=== PATIENT | female | born 1965 | race Caucasian/White ===

== ENCOUNTER → 2019-03-28 | Outpatient (CLI) | payer BC ==
--- NOTE | 2019-03-28 10:18 | REP ---
BILATERAL LOWER EXTREMITY DUPLEX DOPPLER VENOUS ULTRASOUND WITH EVALUATION FOR VENOUS REFLUX: Real-time compression and duplex Doppler interrogation of the bilateral lower extremity deep venous systems is performed. Bilaterally, common femoral, superficial femoral and popliteal veins are fully compressible with transducer pressure and demonstrate normal spontaneous and phasic flow without evidence of deep venous thrombosis. Echogenic material is seen in the left lesser saphenous vein with partial calcification, compatible with chronic thrombosis. Evaluation for venous reflux on the right demonstrates mild reflux in the common femoral vein. There is an anterior accessory greater saphenous vein present without reflux. There is no reflux in the remaining deep vein system. There is no reflux in any portion of the greater saphenous vein, which measures 5 mm at the saphenofemoral junction and 3 mm distal to that. There is reflux in the lesser saphenous vein with a duration of 3.0 seconds, AP diameter of 9 mm. There is very slow flow in the right greater saphenous vein. On the left, there is mild reflux in the common femoral vein. There is an anterior accessory greater saphenous vein present without reflux. There is no reflux in the more peripheral deep vein system. There is reflux in the greater saphenous vein at the saphenofemoral junction with duration of 5.1 seconds, AP diameter 9 mm, also at the mid thigh with a duration of 4.1 seconds and AP diameter of 7 mm as well as at the knee duration 6.9 seconds, AP diameter 3 mm. There is reflux in the lesser saphenous vein distal to the partially calcified thrombus with duration of 4.7 seconds, AP diameter 6 mm. Collateral venous structure connects with the greater saphenous vein feeding venous varicosities both above and below the knee. There are collateral venous structures connecting with the peripheral lesser saphenous vein. Unreviewed
== END ==
LOC: M RAD 06:55
PROVIDERS: ATTEND Surgery Vascular Surgery
DX: I83.93 Asymptomatic varicose veins of bilateral lower extremities (principal); I87.2 Venous insufficiency (chronic) (peripheral)